=== PATIENT | female | born 1955 | race Caucasian/White ===

== ENCOUNTER → 2019-09-16 | Outpatient (CLI) | payer BC ==
--- NOTE | 2019-09-16 14:20 | Diagnostic Imaging Report ---
INDICATION: Right wrist pain 3 views of the right wrist show no fracture, dislocation or other acute abnormalities. IMPRESSION: Negative right wrist. Dictated by: Dictated on workstation # [id number]
== END ==
LOC: RAD FS 13:58
PROVIDERS: ATTEND Nurse Practitioner
DX: M25.531 Pain in right wrist (principal)
CPT/HCPCS: 73110